=== PATIENT | female | born 1950 | race Caucasian/White ===

== ENCOUNTER → 2017-03-04 | Outpatient (CLI) | payer MEDICARE, MEDICAID ==
[~2017-03-04] MED LIST: BUMEX 1MG TA1 MG/TA1 PO; CLEOCIN HC150 MG/CAP PO; FIORICET 325 MG1 TA1 PO; KLOR-CON M1010 MEQ PO; LASIX 40MG TABL40 MG PO; LORTAB 7.5/5001 TAB PO; MOBIC15 MG PO; NEXIUM 40MG40 MG PO; NORVASC 10MG10 MG PO; OXYCONTIN40 MG PO; SEE INSTRUCTIONS IT; STOOL SOFTENER100 M2 PO; XANAX 0.5MG0.5 MG PO
== END ==
LOC: MHCPAIN 10:59
DX: G89.29 Other chronic pain (principal); M47.817 Spondylosis without myelopathy or radiculopathy, lumbosacral region; M53.3 Sacrococcygeal disorders, not elsewhere classified; M96.1 Postlaminectomy syndrome, not elsewhere classified
CPT/HCPCS: G0463

== ENCOUNTER 2018-07-09 08:07 | Day surgery (SDC) | payer MEDICARE, MEDICAID ==
[~2018-07-09] VITALS: Ht 160 cm; Wt 110.5 kg
[~2018-07-09 08:07] MED LIST changes: +ALDACTONE 25MG25 M1 PO; +CLARITIN 1010 MG/TAB PO; +EFFER-K20 MEQ PO; +KLOR-CON20 MEQ PO; +NORCO 325 MG-101 TAB PO; +OXYCONTIN60 MG PO; +PREDNISONE20 MG PO; +ZESTRIL 10MG10 MG PO
[2018-07-09 09:20] VITALS: BP 129/68; PULSE 69; TEMP 98.1
[2018-07-09 11:52] VITALS: BP 133/54; PULSE 81; TEMP 97.4
[2018-07-09 12:07] VITALS: BP 130/54; PULSE 81
[2018-07-09 12:22] VITALS: BP 133/37; PULSE 82
== END 2018-07-09 12:47 | disposition home or self-care (01) ==
LOC: SDCO 08:07
DX: N39.41 Urge incontinence (principal); R35.0 Frequency of micturition; I11.0 Hypertensive heart disease with heart failure; I50.9 Heart failure, unspecified; F41.9 Anxiety disorder, unspecified; Z79.899 Other long term (current) drug therapy; Z87.891 Personal history of nicotine dependence
CPT/HCPCS: C1767; C1787; J0690; J1100; J1720; J1885; J2405; J2704; J2765; J3010; J7120